=== PATIENT | female | born 1950 | race Caucasian/White ===

== ENCOUNTER → 2019-12-27 10:23 | Outpatient (CLI) | payer MEDICARE, BC | END | disposition home or self-care (01) | LOC: D.HCCARDIO 10:23 | PROVIDERS: ATTEND Internal Medicine Cardiovascular Disease | DX: I20.9 Angina pectoris, unspecified (principal) ==

== ENCOUNTER 2020-01-09 11:11 | Outpatient (CLI) | payer MEDICARE, BC ==
[~2020-01-09] VITALS: Ht 177.8 cm; Wt 115.9 kg
--- NOTE | ~2020-01-09 | HEMODYNAMI ---
PATIENT:YAMILKA CABRERA MEDICAL RECORD: [id number] : 52 LOCATION:D.CAT ADMISSION DATE: 01/09/20 Generatedon:01/09/202015:01 Patient name: YAMILKA CABRERA Patient #: [id number] SSN: [id number] : 1950 Date of study: 01/09/2020 Page: Of Hemodynamic Procedure Report Patient Data Patient Demographics Procedure consent was obtained First Name: YAMILKA Gender: Female Last Name: RICK : 1950 Middle Initial: L Age: 69 year(s) Patient #: [id number] Race: SSN: [id number] Additional ID: [id number] Contact details [address]: [address] [place] [address] State: [place] City: [place] Zip code: [address] Past Medical History Allergies Allergen Reaction Date Comments Reported Other allergy 01/09/2020 SULFA Admission Admission Data Admission Date: 01/09/2020 Admission Time: 11:11 Arrival Date: 01/09/2020 Arrival Time: 0:00 Admit Source: Other Insurance Payor: Medicare [facility] #: [id number] Height (in.): 70 BSA: 2.31 (m2) Height (cm.): 177.8 BMI: 36.38 (kg/m2) Weight (lbs.): 253.53 Weight (kg.): 115 Lab Results Lab Result Date: 01/09/2020 Lab Result Time: 0:00 Biochemistry Name Units Result Min Max BUN mg/dl 18 --(---*)-- 7 18 Creatinine mg/dl 1.2 --(---*)-- 0.6 1.3 eGFR ml/min 47 *-(----)-- 90 120 NONAFRICAN CBC Name Units Result Min Max Hematocrit % 42.8 --(*---)-- 42 54 Hemoglobin g/dl 14.7 --(-*--)-- 13.5 17.5 Procedure Procedure Types Cath Procedure Diagnostic Procedure [facility] w/Coronaries Procedure Description Procedure Date Procedure Date: 01/09/2020 Procedure Start Time: 14:46 Procedure End Time: 15:00 Procedure Staff Name Function Yamilka Storm RT Monitor Fanny Pugh RT Scrub Valdo Suarez RN Nurse Misha Flores MD Performing Physician Indication Chest pain Procedure Data Cath Procedure Fluoroscopy Diagnostic fluoroscopy Total fluoroscopy Time: 3.5 time: 3.5 min min Diagnostic fluoroscopy Total fluoroscopy dose: 585 dose: 585 mGy mGy Contrast Material Contrast Material Type Amount (ml) Isovue 300 45 Entry Location Entry Primary Successful Side Size Upsize Upsize Entry Closure Stoddard ccessful Closure Location (Fr) 1 (Fr) 2 (Fr) Remarks Device Remarks Radial Right 6 Fr Mechanical artery Short Compression Estimated blood loss: 5 ml Diagnostic catheters Device Type Used For End Catheter Placement DIAGNOSTIC Choudrant 110cm 5 Procedure Fr catheter ([id number]) Procedure Complications No complications Procedure Medications Medication Administration Route Dosage 0.9% NaCl I.V. 100 ml/hr Oxygen etCO2 Nasal cannula 2 l/min Heparin Flush Bag added to field 2 bags (1000units/500ml NS) Lidocaine 2% added to field 20 Radial Cocktail added to field 1 syringe (Verapamil 2mg/Nitro 400mcg/Heparin 1500units) Versed I.V. 2 mg Fentanyl I.V. 100 mcg Radial Cocktail I.A. 1 syringe (Verapamil 2mg/Nitro 400mcg/Heparin 1500units) Versed I.V. 1 mg Hemodynamics Rest BSA: 2.31 (m2) HGB: 14.7 (g/dl) O2 Consumption: Estimated: 221.91 (ml/min) O2 Co nsumption indexed: Estimated:96.06 (ml/min/m) Heart Rate: 79 (bpm) Pressure Samples Time Site Value (mmHg) Purpose Heart Use Rate(bpm) 14:50 LV 115/-1,11 Snapshot 90 Gradients Valve Time Site Site Mean SEP/DFP Peak To Heart Use 1 2 (mmHg) (sec/min) Peak Rate (mmHg) (bpm) Aortic 14:50 LV AO 64 Snapshots Pre Cath Intra NCS Post Cath Vital Signs Time Heart Resp SPO2 etCO2 NIBP (mmHg) Rhythm Pain Sedation Rate (ipm) (%) (mmHg) Status Level (bpm) 14:29:31 69 20 94 13.4 121/61(82) NSR 0 (11) 10(A) , No pain 14:34:03 73 14 92 0 112/70(87) NSR 0 (11) 10(A) , No pain 14:38:38 74 19 92 11.2 114/61(84) NSR 0 (11) 10(A) , No pain 14:44:26 80 19 92 23.1 120/68(96) NSR 0 (11) 10(A) , No pain 14:48:58 96 10 92 0 105/63(89) NSR 0 (11) 9(A) , No pain 14:53:27 95 11 93 0 121/69(100) NSR 0 (11) 9(A) , No pain 14:58:03 86 10 93 9.7 122/69(91) NSR 0 (11) 9(A) , No pain Medications Time Medication Route Dose Verified Delivered Reason Notes Effectiveness by by 14:29:54 0.9% NaCl I.V. 100 Valdo Valdo Per ml/hr Erick Suarez physician RN RN 14:30:02 Oxygen etCO2 2 l/min Valdo Valdo for low 02 Nasal Lorigan Lorigan sats cannula RN RN 14:30:12 Heparin Flush added 2 bags Valdo Valdo used for Bag to Erick Suarez procedure (1000units/500ml [facility] RN RN NS) 14:30:20 Lidocaine 2% added 20ml Valdo Valdo for local to vial Lorigan Lorigan anesthetic RN RN 14:30:29 Radial Cocktail added 1 Valdo Valdo used for (Verapamil to syringe Veroniqueigan Erick procedure 2mg/Nitro field RN RN 400mcg/Heparin 1500units) 14:45:43 Versed I.V. 2 mg Valdo Valdo for sedation Erick Suarez RN RN 14:45:50 Fentanyl I.V. 100 mcg Valdo Valdo for sedation Erick Suarez RN RN 14:46:59 Radial Cocktail I.A. 1 Valdo Misha for (Verapamil syringe Erick Flores MD vasodilation 2mg/Nitro RN 400mcg/Heparin 1500units) 14:47:10 Versed I.V. 1 mg Valdo Valdo for sedation Erick Suarez RN brass buffer Log Time Note 14:03:24 Informed consent obtained and on chart 14:03:40 Diagnostic Cath Status : Elective 14:03:57 Indication : Chest pain 14:04:38 Lab Result : Hemoglobin 14.7 g/dl 14:04:38 Lab Result : eGFR NONAFRICAN 47 ml/min 14:04:38 Lab Result : BUN 18 mg/dl 14:04:38 Lab Result : Creatinine 1.2 mg/dl 14:04:39 Lab Result : Hematocrit 42.8 % 14:04:42 Arrival Date: 01/09/2020 12:00:00 AM 14:04:43 Admit Source: Other 14:04:46 Patient Height : 70 inches 14:04:56 Insurance Payor : Medicare 14:05:14 Procedure Status Elective Heart Cath (OP). 14:05:17 Time tracking: Regular hours (M-F 7:00 - 5:00) 14:05:21 Plan of Care:Hemodynamics will remain stable., Cardiac rhythm will remain stable., Comfort level will be maintained., Respiratory function will remain adequate., Patient/ family verbilizes understanding of procedure., Procedure tolerated without complication., Recovers from procedure without complications.. 14:05:28 ACC Patient presents with Stable Angina CCS Anginal Class 2--Slight limitation of ordinary activity. 14:05:43 H&P Date Dictated: 12/11/2019 Within 30 days and on chart.. 14:05:49 Lab results completed and on chart. 14:07:19 Stress Test: yes; abnormal ANTERIOR 14:07:22 Alarms reviewed by R. N. 14:07:22 Sharps counted by scrub and verified by R.N. 14:08:06 Patient allergic to Other allergySULFA 14:10:44 Valdo Suarez RN sent for patient. Start room use. 14:20:10 Patient received from Pre/Post Procedure Room to CCL 1 Alert and oriented. Tansferred to table in Supine position. 14:20:12 Warm blankets applied, and sammy hugger turned on for patient comfort. 14:20:13 Correct patient and procedure confirmed by team. 14:20:13 ECG and BP/O2 sat monitors applied to patient. 14:27:55 Vital chart was started 14:27:56 Baseline sample Acquired. 14:28:11 Rhythm: sinus rhythm 14:28:13 Full Disclosure recording started 14::14 - 14:28:15 Pre-procedure instructions explained to patient. 14:28:15 Pre-op teaching completed and patient verbalized understanding. 14:28:19 Family in waiting room. 14:28:21 Patient NPO since Midnight. 14:28:29 Is the patient allergic to Iodine/contrast media? No. 14:28:33 Was the patient premedicated? Yes 14:28:36 Is patient on blood thinner?No 14:28:38 Patient diabetic? No. 14:28:47 Patient not . Patient is over age 55. 14:28:49 ----Pre-sedation anethsthesia assessment.---- 14:28:53 Previous problem with sedation/anesthesia? No ? 14:28:55 Snore? Yes 14:28:58 Sleep apnea? No 14:29:01 Deviated septum? No 14:29:03 Opens mouth fully? Yes 14:29:06 Sticks out tongue? Yes 14:29:09 Airway obstruction? No ? 14:29:12 Dentures? No ? 14:29:16 Pre procedure: right dorsailis pedis pulse 2+ Normal; easily identifiable; not easily obliterated 14:29:27 Modified Nimesh's test Ulnar > 7 seconds. 14:29:39 IV patent on arrival in left hand with 0.9% NaCl at [facility]. 14:29:50 Right Radial & Right Groin area was prepped with chlora-prep and draped in sterile fashion 14:29:54 0.9% NaCl 100 ml/hr I.V. was administered by Valdo Suarez RN; Per physician; Verbal order read back and verified. 14:30:02 Oxygen 2 l/min etCO2 Nasal cannula was administered by Valdo Suarez RN; for low 02 sats; Verbal order read back and verified. 14:30:12 Heparin Flush Bag (1000units/500ml NS) 2 bags added to field was administered by Valdo Suarez RN; used for procedure; Verbal order read back and verified. 14:30:20 Lidocaine 2% 20ml vial added to field was administered by Valdo Suarez RN; for local anesthetic; Verbal order read back and verified. 14:30:29 Radial Cocktail (Verapamil 2mg/Nitro 400mcg/Heparin 1500units) 1 syring e added to field was administered by Valdo Suarez RN; used for procedure; Verbal order read back and verified. 14:31:47 Use device set Radial Dx or PCI 14:31:50 ACIST Syringe (78311) opened to sterile field. 14:31:51 Medline Cath Pack ([id number]) opened to sterile field. 14:31:51 Bag Decanter (2002S) opened to sterile field. 14:31:52 ACIST Hand Control (27375) opened to sterile field. 14:31:53 ACIST Manifold (23739) opened to sterile field. 14:31:54 MBrace Wrist Support ([id number]) opened to sterile field. 14:31:55 NEEDLE Cook 21G 4cm Radial (R34817) opened to sterile field. 14:31:57 EMERALD Guide Wire (467-375) opened to sterile field. 14:31:58 SHEATH 6FR RAIN (0272286) opened to sterile field. 14:37:06 Risk of Mortality: 0.1 14:37:11 Risk of blood transfusion: 0.1 14:37:16 Risk of SANDRA: 0.6 14:39:16 Patient Weight : 253.53 lbs 14:40:54 Zero performed for pressure channel P1 14:42:27 Zero performed for pressure channel P1 14:44:56 Physician arrived 14:44:57 --------ALL STOP TIME OUT------ 14:44:59 Final Timeout: patient, procedure, and site verified with staff and physician. All members of the team are in agreement. 14:45:01 Right Radial & Right Groin site verified by team. 14:45:08 Fire Safety Assessment: A--An alcohol-based skin anteseptic being used preoperatively., C--Open oxygen or nitrous oxide is being used., D--An ESU, laser, or fiber-optic light is being used. 14:45:38 Physical assessment completed. ASA score P 2 - A patient with mild systemic disease as per Misha Flores MD. 14:45:43 Versed 2 mg I.V. was administered by Valdo Suarez RN; for sedation; Verbal order read back and verified. 14:45:46 3a) 45-59 Moderately reduced kidney function. 14:45:50 Fentanyl 100 mcg I.V. was administered by Valdo Suarez RN; for sedation; Verbal order read back and verified. 14:45:51 Maximum allowable contrast dose (3.7 X eGFR X 0.75)130 ml. 14:45:56 Sedation plan: IV Moderate Sedation Medication:Versed, Fentanyl 14:46:03 Procedure started. 14:46:11 Local anesthetic to right radial artery with Lidocaine 2% by Misha Flores MD.INITIAL ACCESS ONLY 14:46:26 A 6 Fr Short sheath was inserted into the Right Radial artery 14:46:42 A DIAGNOSTIC Choudrant 110cm 5 Fr catheter (983656) was advanced over the wire and used for Procedure. 14:46:59 Radial Cocktail (Verapamil 2mg/Nitro 400mcg/Heparin 1500units) 1 syring e I.A. was administered by Misha Flores MD; for vasodilation; Verbal order read back and verified. 14:47:10 Versed 1 mg I.V. was administered by Valdo Suarez RN; for sedation; Verbal order read back and verified. 14:48:10 GLIDE WIRE ANGLE 260cm ([id number]) opened to sterile field. 14:48:45 GLIDEWIRE ANGLED wire advanced. 14:49:00 Injector settings: Ml/sec: 5, Volume: 15, 14:50:16 LV hemodynamics recorded. 14:50:26 EF : 60 % 14:50:49 LV gram done using MONET 14:51:11 LCA angiography performed. 14:51:21 Injector settings: Ml/sec: 3, Volume: 6, 14:52:24 RCA angiography performed. 14:52:35 Injector settings: Ml/sec: 3, Volume: 6, 14:52:59 Catheter removed. 14:53:25 ZEPHYR REGULAR TR BAND (895393) opened to sterile field. 14:53:42 Sheath removed intact; hemostasis achieved with Mechanical Compression to the Right Radial artery. 14:53:46 Procedure ended.(Physican Out) 14:53:57 Contrast amount:Isovue 300 45ml. 14:54:17 Fluoroscopy time 03.50 minutes. 14:54:26 Fluoroscopy dose: 585 mGy 14:54:26 Flurop Dose total: 585 14:54:35 Dose Area Product 49327 mGy/cm. 14:54:43 Maximum allowable dose exceeded? No. 14:54:45 Sharps counted by scrub and verified by R.N. 14:54:50 [place] band inflated with 12cc of air. 14:54:53 Insertion/operative site no bleeding no hematoma. 14:55:04 Post right radial artery:stable 14:55:08 Post Procedure Pulses reassessed and unchanged 14:55:22 Post-procedure physical assessment completed. ASA score P 2 - A patient with mild systemic disease as per Misha Flores MD. 14:55:28 Post procedure rhythm: unchanged. 14:55:32 Estimated blood loss: 5 ml 14:55:35 Post procedure instruction explained to patient.Patient verbalizes understanding. 14:55:36 Patient needs reinforcement of post procedure teaching. 14:57:03 Procedure and supply charges have been captured, reviewed, submitted an d are correct. 14:59:15 Procedure Complication : No complications 14:59:19 Vital chart was stopped 14:59:24 [facility] Findings: mild to moderate CAD (<70%) 14:59:28 Operative report dictated upon procedure completion. 14:59:29 See physician's report for complete and final results. 15:00:18 Report given to Pre/Post Procedure Room. 15:00:23 Patient transfered to Pre/Post Procedure Room with Stretcher. 15:00:27 Procedure ended. 15:00:27 Full Disclosure recording stopped 15:00:33 End room use (Document Last) Device Usage Item Name Manufacture Quantity Catalog Hospital Part Current Minima l Lot# / Number Charge Number Stock Stock Serial# Code ACIST Acist 1 67072 [id number] 20 Syringe [employer] (41513) Systems Inc Medline Medline 1 [id number] 95507 597832 5 Cath Pack ([id number]) Bag Microtek 1 783962 47456 770882 5 Decanter Medical Inc. () ACIST Hand Acist 1 55073 202667 159855 797344 5 Control Medical (81301) Systems Inc ACIST Acist 1 06104 593416 217076 043257 5 Manifold Medical (10392) Systems Inc MBrace Advanced 1 [id number] 969533 25467 329876 5 Wrist Vascular Support Dynamics ([id number]) NEEDLE Cook Cook Medical 1 D26856 004943 982698 667451 5 21G 4cm Radial (R52170) EMERALD Cardinal 1 502-455 513364 585102 073164 5 Guide Wire Health (502455) SHEATH 6FR Cardinal 1 9899123 969198 1271972 163287 5 [facility] Health (4273599) DIAGNOSTIC Terumo 1 40-5333 439111 401325 867791 5 Choudrant 110cm 5 Fr catheter (456231) GLIDE WIRE Terumo 1 [id number] 728897 899797 094896 5 ANGLE 260cm (LR3123) ZEPHYR Cardinal 1 176055 102678 1414173 009525 5 REGULAR TR Health BAND (591560) Signature Audit Hye Stage Time Signature Unsigned Intra-Procedure 01/09/2020 Yamilka 3:00:56 PM Dotty RT(R) (CV) Intra-Procedure 01/09/2020 Valdo 3:01:22 PM Erick FRANCOIS Intra-Procedure 01/09/2020 Misha Flores MD 3:01:54 PM [facility] [address] [facility] [place] [address]
[2020-01-09] MEDS ORDERED: GABAPENTIN300 MG PO (11:51)
[2020-01-09] MEDS ORDERED: PAXIL20 MG PO (11:52)
[2020-01-09] MEDS ORDERED: LOSARTAN-HCTZ1 EAC1 PO (11:52)
[2020-01-09] MEDS ORDERED: FLUTICASONE PRO16 GM NASAL (11:52)
[2020-01-09 12:26] VITALS: BP 127/85; Ht 177.8 cm; Wt 115.9 kg
[2020-01-09 12:35] LABS: BASOPHILS 0.2 % (0-2); EOSINOPHILS 6.7 % (0-7); HEMATOCRIT 42.8 % (36.0-48.0); HEMOGLOBIN 14.7 g/dL (12-16); IMMATURE GRANULOCYTES 0.2 % (0-5); LYMPHOCYTES 38.1 % (15-50); MCH 30.8 pg (26.0-34.0); MCHC 34.3 g/dL (31.0-37.0); MCV 89.5 fL (80.0-100.0); MEAN PLATELET VOLUME 11.3 fL (7.4-10.4); MONOCYTES 8.1 % (2-11); NEUTROPHILS 46.7 % (40-80); PLATELET COUNT 174 10x3/uL (130-400); RBC 4.78 10x6/uL (4.00-5.40); RDW 13.3 % (11.5-14.5); WBC 5.4 10x3/uL (4.8-10.8)
[2020-01-09 12:46] LABS: ANION GAP 13.9 mmol/L (8-16); CALCIUM 9.1 mg/dL (8.5-10.1); CARBON DIOXIDE 24.8 mmol/L (21.0-32.0); CHOL - HDL RATIO 4.1 ratio (2.3-4.1); CREATININE - SERUM 1.2 mg/dL (0.6-1.3); LDL-HDL RATIO 2.6 ratio (1.5-3.5); POTASSIUM - SERUM 3.7 mmol/L (3.5-5.1)
== END 2020-01-09 17:35 | disposition home or self-care (01) ==
LOC: D.CATH 11:11
PROVIDERS: ATTEND Internal Medicine Cardiovascular Disease
DX: I20.9 Angina pectoris, unspecified (principal); R94.39 Abnormal result of other cardiovascular function study; R07.9 Chest pain, unspecified